=== PATIENT | male | born 1955 | race Caucasian/White ===

== ENCOUNTER → 2021-06-29 | Outpatient (CLI) | payer OTHER ==
[~2021-06-29] MED LIST: AMBIEN 5 MG TABL5 M1 PO; AUGMENTIN 875875 M1 PO; BACTRIM DS TAB1 EACH PO; DICLOFENAC SOD50 M1 PO; NAPROSYN500 MG PO; PROMETHAZINE-D120 ML PO; SLEEPING PILL; VENTOLIN HFA 1818 GM INH
== END ==
LOC: M.ULTRA 08:41
DX: Z01.89 Encounter for other specified special examinations (principal)